=== PATIENT | female | born 1945 | race Two or more races ===

== ENCOUNTER 2020-11-27 19:21 | Emergency (ER) | payer OTHER ==
[~2020-11-27] VITALS: Ht 157.5 cm; Wt 47.6 kg
[2020-11-27] MEDS ORDERED: FORTAMET1000 MG (19:52)
[2020-11-27] MEDS ORDERED: LOSARTAN POTASS25 MG (19:52)
[2020-11-27] MEDS ORDERED: SIMVASTATIN5 MG (19:53)
== END 2020-11-28 11:22 | disposition home or self-care (01) ==
LOC: ER 19:21
DX: K80.80 Other cholelithiasis without obstruction (principal); R10.32 Left lower quadrant pain; R19.7 Diarrhea, unspecified

== ENCOUNTER 2021-06-17 01:53 | Emergency (ER) | payer OTHER ==
[~2021-06-17] VITALS: Ht 162.6 cm; Wt 43.1 kg
[~2021-06-17 01:53] MED LIST: FORTAMET1000 MG; LOSARTAN POTASS25 MG; SIMVASTATIN5 MG
== END 2021-06-17 09:39 | disposition home or self-care (01) ==
LOC: ER 01:53
DX: K57.90 Diverticulosis of intestine, part unspecified, without perforation or abscess without bleeding (principal); R10.9 Unspecified abdominal pain; E87.1 Hypo-osmolality and hyponatremia; I10 Essential (primary) hypertension; E11.9 Type 2 diabetes mellitus without complications; Z79.84 Long term (current) use of oral hypoglycemic drugs